=== PATIENT | female | born 1965 | race Caucasian/White ===

== ENCOUNTER 2018-09-16 12:55 | Emergency (ER) | payer OTHER ==
[2018-09-16 13:19] VITALS: BP 127/89
--- NOTE | 2018-09-16 14:11 | UC ---
Dental HPI - HPI Summary HPI Summary: 53-year-old female presents with complaints of dental pain. States she had a cavity filled to right first molar 5 days ago. Started developing tenderness at the base the tooth the following day. The last couple days she has noted a white lesion in the area of tenderness. She does have an appointment with her dentist tomorrow however was recommended that she come to urgent care for possible antibiotics. She denies fever, chills, drainage, or trismus. - History of Current Complaint Chief Complaint: UCDentalProblem Stated Complaint: DENTAL PAIN Time Seen by Provider: 09/16/18 13:39 Hx Obtained From: Patient Hx Last Menstrual Period: 12/05/14 Pain Intensity: 3 - Allergies/Home Medications Allergies/Adverse Reactions: Allergies Allergy/AdvReac Type Severity Reaction Status Date / Time amoxicillin Allergy Severe Diarrhea Verified 04/22/18 13:40 formaldehyde Allergy Unknown Verified 04/22/18 13:40 Reaction Details paraben Allergy Unknown Verified 04/22/18 13:40 Reaction Details Home Medications: Home Medications Calcium Carbonate [Calcium/C/D] 1 chw PO 09/16/18 [History] Cholecalciferol (Vitamin D3) [Vitamin D3] 1,000 unit PO 09/16/18 [History] PMH/Surg Hx/FS Hx/Imm Hx Previously Healthy: Yes Neurological History: Migraine - Surgical History Surgical History: Yes Surgery Procedure, Year, and Place: 2x OPERATIONS TO INTESTINE at age 7.;. C- SECTIONS X2 - Family History Known Family History: Positive: Cardiac Disease - Social History Occupation: Employed Part-time Lives: With Family Alcohol Use: Occasionally Substance Use Type: None Smoking Status (MU): Never Smoked Tobacco - Immunization History Vaccination Up to Date: Yes Review of Systems All Other Systems Reviewed And Are Negative: Yes Constitutional: Negative: Fever, Chills Eyes: Negative: Drainage, Eye Redness ENT: Positive: Dental Pain. Negative: Sore Throat, Ear Ache, Nasal Discharge, Sinus Congestion, Sinus Pain/Tenderness Physical Exam - Summary Physical Exam Summary: GENERAL APPEARANCE: Well developed, well nourished, alert and cooperative, and appears to be in no acute distress. THROAT: Pharynx normal. No tonsilar inflammation, swelling, exudate, or lesions. Uvula midline. Tender area of induration with a small fluctuant white- colored lesion at the base of her right first molar NECK: Neck supple, non-tender without lymphadenopathy. CARDIAC: Normal S1 and S2. No S3, S4 or murmurs. Rhythm is regular. There is no peripheral edema, cyanosis or pallor. Extremities are warm and well perfused. Capillary refill is less than 2 seconds. Peripheral pulses intact. LUNGS: Clear to auscultation without rales, rhonchi, wheezing or diminished breath sounds. ABDOMEN: Positive bowel sounds. Soft, nondistended, nontender. No guarding or rebound. No masses or hepatosplenomegally. MUSKULOSKELETAL: ROM intact to all extremities. No joint erythema or tenderness. Normal muscular development. Normal gait. SKIN: Skin normal color, texture and turgor with no lesions or eruptions. Triage Information Reviewed: Yes Vital Signs: Initial Vital Signs Temp 99.2 F 09/16/18 13:14 Pulse 74 09/16/18 13:14 Resp 18 09/16/18 13:14 BP 127/89 09/16/18 13:14 Pulse Ox 100 09/16/18 13:14 Vital Signs Reviewed: Yes Dental Complaint Course/Dx - Course Course Of Treatment: 53-year-old female presents with complaints of dental pain. States she had a cavity filled to right first molar 5 days ago. Started developing tenderness at the base the tooth the following day. The last couple days she has noted a white lesion in the area of tenderness. She does have an appointment with her dentist tomorrow however was recommended that she come to urgent care for possible antibiotics. She denies fever, chills, drainage, or trismus. Afebrile. Vital signs stable. Exam revealed a tender area of induration with a small fluctuant white-colored lesion at the base of her right first molar. Will treat her for a dental abscess with clindamycin 300 mg 3 times a day 10 days. She is to use [id number] analgesics as needed for pain. Encouraged her to keep her appointment with her dentist for follow-up. Anticipatory guidance and warning symptoms were reviewed with the patient. Verbalizes understanding and agrees with plan of care. - Differential Dx/Diagnosis Differential Diagnosis/Dx: Dental Abscess, Dental Caries, Odontogenic Pain, Peridontic Disease Provider Diagnosis: Dental abscess Discharge - Sign-Out/Discharge Documenting (check all that apply): Patient Departure All imaging exams completed and their final reports reviewed: No Studies - Discharge Plan Condition: Stable Disposition: HOME Prescriptions: Clindamycin HCl 300 mg PO TID #30 capsule Patient Education Materials: Toothache (ED) Referrals: Elba Meek MD [Primary Care Provider] - Additional Instructions: Start clindamycin 300 mg three times a day for 10 days. Take acetaminophen (Tylenol) or ibuprofen (Advil, Motrin) according to directions as needed for pain. Be sure to rinse your mouth out with a warm salt water solution after every time you eat to remove any debris. Make an appointment with your dentist at next available appointment. Seek immediate medical attention in the emergency room if you develop fever greater than 100.5 F, you are unable to open of close your mouth, are unable to swallow, have difficulty breathing, or any worsening of symptoms. - Billing Disposition and Condition Condition: STABLE Disposition: Home
== END 2018-09-16 14:24 | disposition home or self-care (01) ==
LOC: UCEAST 12:55
DX: K04.7 Periapical abscess without sinus (principal); Z88.0 Allergy status to penicillin; Z88.8 Allergy status to other drugs, medicaments and biological substances
CPT/HCPCS: 99212; G0463

== ENCOUNTER 2019-03-31 17:44 | Emergency (ER) | payer OTHER ==
[2019-03-31 17:57] VITALS: BP 137/92
--- NOTE | 2019-03-31 18:16 | UC ---
Eye Complaint HPI - HPI Summary HPI Summary: 53 year old female who has some redness to her left eye. She states that this morning she vomited 2 times and then noticed it later in the day. She does not wear contact lenses. She has no change in her vision. She denies any recent cold symptoms. - History of Current Complaint Chief Complaint: UCEye Stated Complaint: LEFT EYE ISSUE Time Seen by Provider: 03/31/19 18:15 Hx Obtained From: Patient Hx Last Menstrual Period: 02/23/19 ?: No Onset/Duration: Gradual Onset Timing: Constant Severity Initially: Mild Severity Currently: Mild Pain Intensity: 4 Location of Injury: Other - No injury Aggravating Factor(s): Nothing Alleviating Factor(s): Nothing Associated Signs And Symptoms: Positive: Negative - Allergies/Home Medications Allergies/Adverse Reactions: Allergies Allergy/AdvReac Type Severity Reaction Status Date / Time amoxicillin Allergy Severe Diarrhea Verified 03/31/19 17:57 formaldehyde Allergy Unknown Verified 03/31/19 17:57 Reaction Details paraben Allergy Unknown Verified 03/31/19 17:57 Reaction Details PMH/Surg Hx/FS Hx/Imm Hx Previously Healthy: Yes Neurological History: Migraine - Surgical History Surgical History: Yes Surgery Procedure, Year, and Place: 2x OPERATIONS TO INTESTINE at age 7.;. C- SECTIONS X2 - Family History Known Family History: Positive: Cardiac Disease - Social History Lives: With Family Alcohol Use: Rare Substance Use Type: None Smoking Status (MU): Never Smoked Tobacco - Immunization History Vaccination Up to Date: Yes Review of Systems All Other Systems Reviewed And Are Negative: Yes Eyes: Positive: Eye Redness - Patient developed left eye redness today. She states that she vomited this morning. She states that she is concerned because there is a "jelly like substance" at the outer canthus of her left eye. Is Patient Immunocompromised?: No Physical Exam Triage Information Reviewed: Yes Appearance: Well-Appearing, No Pain Distress, Well-Nourished Vital Signs: Initial Vital Signs Temp 98.7 F 03/31/19 17:51 Pulse 74 03/31/19 17:51 Resp 16 03/31/19 17:51 BP 137/92 03/31/19 17:51 Pulse Ox 99 03/31/19 17:51 Vital Signs Reviewed: Yes Eyes: Positive: Conjunctiva Clear, Other: - Sclera is injected and there appears to be a small subconjunctival hemorrhage at the [place] aspect of her left eye. She does have some increased mucous membrane at the outer canthus of her left eye but the globe is intact. Eyes are PERRLA, EOMI. Psychological Exam: Normal Skin Exam: Normal Eye Complaint Course/Dx - Course Course Of Treatment: Patient is comfortable here. I believe she has a small subconjunctival hemorrhage from vomiting this morning. She does have some increased mucus at the lateral aspect of her left cornea which may be consistent with allergic reaction. She can take Benadryl 25 mg every 6 hours as needed. Definite follow -up with the business support professional in the morning. - Differential Dx/Diagnosis Provider Diagnosis: Subconjunctival hemorrhage of left eye Discharge ED - Sign-Out/Discharge Documenting (check all that apply): Patient Departure All imaging exams completed and their final reports reviewed: No Studies - Discharge Plan Condition: Good Disposition: HOME Patient Education Materials: Subconjunctival Hemorrhage (ED) Referrals: Jad Reyes MD [Medical Doctor] - Elba Meek MD [Primary Care Provider] - Additional Instructions: Apply cool moist compresses to your eye tonight and tomorrow. Definite follow- up with the business support professional in the morning. Go to the emergency room if you have any change in your vision. You may take Benadryl 25 mg by mouth every 6 hours tonight and then tomorrow as well. - Billing Disposition and Condition Condition: GOOD Disposition: Home - Attestation Statements Provider Attestation: Per institutional requirements, I have reviewed the chart, however, I was not consulted specifically or made aware of this patient by the midlevel provider. I did not personally evaluate, interact with , or disposition this patient.
== END 2019-03-31 18:36 | disposition home or self-care (01) ==
LOC: UCEAST 17:44
DX: H11.32 Conjunctival hemorrhage, left eye (principal); Z88.0 Allergy status to penicillin; Z88.8 Allergy status to other drugs, medicaments and biological substances; Z91.09 Other allergy status, other than to drugs and biological substances
CPT/HCPCS: 99211; G0463